=== PATIENT | female | born 1940 | race Caucasian/White ===

== ENCOUNTER → 2016-11-17 | Outpatient (CLI) | payer MEDICARE, BC ==
[~2016-11-17] MED LIST: AMLODIPINE BESY10 MG PO; ASPIRIN81 M2 PO; LOPID600 MG PO; LOPRESSOR100 MG PO; LOTENSIN20 MG PO; LUMIGAN2.5 ML OP; MEGACE PO; METOPROLOL TAR100 MG PO; PANTOPRAZOLE SO40 MG PO; PROTONIX PO; SIMVASTATIN40 MG PO; XARELTO15 MG PO
--- NOTE | ~2016-11-17 | XA30 ---
[facility] A Service of [facility] [place] RADIOLOGY TEXT RESULTS PATIENT: KENTON COOL LOCATION: [facility] : 36 UNIT #: [id number] AGE: [address]: Erik Smith MD SEX: F ORDER DR: [id number] [facility] [address] [place], [place] [address] [id number] O MR#: [id number] Acc #: [id number] NAME: KENTON COOL : 1940 SEX: F STUDY DATE/TIME: 11/17/2016 11:08 UNIT: [facility] ROOM: STUDY DESCRIPTION: XA Arthrocentesis Major Joint Attending Physician: Erik Smith M.D. Ordering Physician: Erik Smith M.D. Primary Care Physician: Julio Huggins M.D. MEDICAL IMAGING REPORT This report is preliminary unless electronic signature is present EXAM Left hip injection under fluoroscopy HISTORY Chronic left hip pain, osteoarthritis. PROCEDURE Procedure, attendant risks, and options were discussed with the patient. She understands and wishes to proceed. The skin was prepped over the left hip joint with Chlorhexidine and sterile drape applied. Sterile gloves were utilized. Under fluoroscopic guidance a 22-gauge needle was advanced under local anesthesia and to the joint confirmed with contrast injection. Approximately 4 mL of 0.5% bupivacaine and 80 mg of Depo-Medrol was injected in the joint. Needle was removed, hemostasis achieved. Total fluoroscopy time 0.9 minutes. Total exposure 7 mGy. Air kerma standard. Prior to the procedure, the patient has a pre-pain of 6 of 10 and post postprocedure the patient is pain free. A single spot radiograph was obtained documenting placement. CONCLUSION Successful fluoroscopically-guided injection of left hip joint. Dictated by... Justin Vera M.D. THIS IS AN ELECTRONICALLY VERIFIED REPORT Justin Vera M.D. at 11/17/2016 5:13 PM GAYLA/willie STS. [facility] A Service of [facility] [place] RADIOLOGY TEXT RESULTS PATIENT: KENTON COOL LOCATION: [facility] : 36 UNIT #: [id number] AGE: [address]: Erik Smith MD SEX: F ORDER DR: TD: 11/17/2016 16:37 JOB #: [id number] MEDICAL IMAGING REPORT Page 1 of 1 COPY
== END | disposition home or self-care (01) ==
LOC: CIVR 10:36
DX: M25.552 Pain in left hip (principal); M19.90 Unspecified osteoarthritis, unspecified site
CPT/HCPCS: 77002; J1030; Q9966